=== PATIENT | male | born 1980 | race Two or more races ===

== ENCOUNTER 2019-09-07 13:49 | Outpatient (CLI) | payer OTHER | END 2019-09-07 13:57 | disposition home or self-care (01) | LOC: MRI 13:49 | DX: M54.5 Low back pain (principal); M41.26 Other idiopathic scoliosis, lumbar region | CPT/HCPCS: 72148 ==

== ENCOUNTER 2020-03-22 10:13 | Outpatient (CLI) | payer OTHER | END 2020-03-22 10:19 | disposition home or self-care (01) | LOC: MRI 10:13 | PROVIDERS: ATTEND Orthopaedic Surgery | DX: M54.2 Cervicalgia (principal) | CPT/HCPCS: 72141 ==